=== PATIENT | male | born 1965 | race Hispanic/Latino ===

== ENCOUNTER 2018-12-07 12:56 | Outpatient (CLI) | payer OTHER ==
--- NOTE | 2018-12-07 14:30 | ULT ---
TESTICULAR SCROTAL ULTRASOUND: HISTORY: Left testicular groin and pelvic pain with possible lump related to erection. TECHNIQUE: Multiplanar todd scale and color Doppler images were obtained in a bilateral testicular/scrotal ultra sound. Spectral analysis of the Doppler waveforms of the testicles was performed. FINDINGS: The testicles are normal in echogenicity without focal lesions and demonstrate normal internal flow. The epididymi are normal without epididymal cysts. No hydrocele was seen. There are bilateral varicoceles, left greater than right. IMPRESSION: Bilateral varicoceles. POS: [facility]
== END 2018-12-07 12:57 | disposition home or self-care (01) ==
LOC: BICULT 12:56
PROVIDERS: ATTEND Internal Medicine
DX: N50.9 Disorder of male genital organs, unspecified (principal); I86.1 Scrotal varices
CPT/HCPCS: 76870; 93976

== ENCOUNTER 2019-10-18 10:42 | Outpatient (CLI) | payer OTHER ==
--- NOTE | 2019-10-18 11:25 | RAD ---
CERVICAL SPINE 2 VIEWS: HISTORY: Cervicalgia. COMPARISON: No comparison. FINDINGS: Cervical vertebrae maintain normal height and alignment. There are moderate degenerative changes not ed. Degenerative disk space narrowing at C5-6 and C6-7. Prominent anterior osteophytes at these lev els. Mild facet hypertrophy. Mild spondylosis posteriorly at C5-6 and C6-7. C7-T1 not adequately e valuated. IMPRESSION: There are moderate degenerative changes in the lower cervical spine as described. POS: [facility]
--- NOTE | 2019-10-18 11:33 | RAD ---
THORACIC SPINE 3 VIEWS: HISTORY: Thoracic pain. FINDINGS: Thoracic vertebrae maintain height and alignment. There are mild to moderate degenerative changes no verenice with spurring and disk narrowing throughout the thoracic spine. No focal lytic or blastic proces s. IMPRESSION: Mild to moderate degenerative changes of the thoracic spine. No compression deformity or acute proce ss identified. POS: [facility]
--- NOTE | 2019-10-18 11:41 | RAD ---
LUMBAR SPINE 2 VIEWS: HISTORY: Lumbago with sciatica. FINDINGS: Lumbar vertebrae maintain height and alignment. L5 is transitional. There is loss of disk space all levels of the lumbar spine. The L5-S1 disk space is narrowed at this transitional level. No eviden ce of spondylolisthesis or spondylolysis. Facet hypertrophy. Moderate spurring. IMPRESSION: Moderate degenerative changes of the lumbar spine. L5 is transitional. Rudimentary ribs are seen at the T12 designation. POS: [facility]
== END 2019-10-18 10:43 | disposition home or self-care (01) ==
LOC: BICRAD 10:42
PROVIDERS: ATTEND Neurological Surgery
DX: M54.2 Cervicalgia (principal); M54.6 Pain in thoracic spine; M54.42 Lumbago with sciatica, left side; M47.816 Spondylosis without myelopathy or radiculopathy, lumbar region; M47.814 Spondylosis without myelopathy or radiculopathy, thoracic region; M47.812 Spondylosis without myelopathy or radiculopathy, cervical region; Q76.49 Other congenital malformations of spine, not associated with scoliosis; Q76.6 Other congenital malformations of ribs
CPT/HCPCS: 72040; 72070; 72100